=== PATIENT | male | born 1940 | race Caucasian/White ===

== ENCOUNTER → 2018-10-23 | Outpatient (CLI) | payer MEDICARE ==
--- NOTE | 2018-10-23 15:02 | CT ---
EXAMINATION TYPE: CT shoulder RT wo con DATE OF EXAM: 10/23/2018 COMPARISON: None HISTORY: 78-year-old male Right shoulder pain TECHNIQUE: Contiguous axial scanning of the right shoulder without IV contrast. Coronal and sagittal reconstructions performed. 3-D reconstructions generated on a dedicated independent workstation. CT DLP: 306.2 mGycm Automated exposure control for dose reduction was used. FINDINGS: There is end-stage degenerative change at the right glenohumeral joint. Multiple loose bodies within the superior subscapularis recess measuring up to 2 cm. Corresponding anterior glenohumeral joint eff usion. There is 19 degrees of glenoid retroversion and mild narrowing of glenoid bone stock posteriorly. Bul ky marginal spurring and subchondral sclerosis is present along with [id number] articulation. Multiple loose bodies are seen along the bicipital groove. Moderate to severe degenerative change at the acromial clavicular joint with capsular hypertrophy. Extensive bony irregularity of both lesser and greater tuberosities. There is some preserved volume i n the subacromial space with only mild volume loss and fatty streaks within the supraspinatus and sub scapularis muscle bellies. There is fatty atrophy of the teres minor noted. IMPRESSION: 1. END-STAGE GLENOHUMERAL JOINT OA WITH [id number] ARTICULATION, 19 DEGREES OF GLENOID RETROVERSION , AND MILD OVERALL LOSS OF GLENOID BONE STOCK POSTERIORLY. 2. MULTIPLE ANTERIOR LOOSE BODIES MEASURING UP TO 2 CM AND ADDITIONAL LOOSE BODIES ALONG THE BICIPITA L GROOVE. 3. MODERATE TO SEVERE AC JOINT OA. 4. MILD FATTY ATROPHY OF THE SUPRASPINATUS AND SUBSCAPULARIS MUSCLE BELLIES. THERE APPEARS TO BE MAIN TAINED TENDON BULK BELOW THE ACROMION. 5. COMPLETE FATTY ATROPHY OF THE TERES MINOR MAY BE SEEN WITH QUADRILATERAL SPACE SYNDROME.
== END | disposition home or self-care (01) ==
LOC: RADCTMAIN 12:11
PROVIDERS: ATTEND Orthopaedic Surgery Sports Medicine
DX: M19.111 Post-traumatic osteoarthritis, right shoulder (principal); M19.011 Primary osteoarthritis, right shoulder

== ENCOUNTER → 2018-11-05 | Outpatient (CLI) | payer MEDICARE ==
[2018-11-05 11:23] LABS: ALT 38 U/L (21-72); AST 32 U/L (17-59); African American GFR (CKD) >90 (>60 ml/min/1.73 sqM); Alkaline Phosphatase 56 U/L (38-126); Anion Gap 8 mmol/L; Blood Urea Nitrogen 15 mg/dL (9-20); Calcium 9.4 mg/dL (8.4-10.2); Carbon Dioxide 28 mmol/L (22-30); Chloride 105 mmol/L (98-107); Glucose 99 mg/dL (74-99); HCT 43.4 % (39.0-53.0); HGB 14.5 gm/dL (13.0-17.5); MCH 30.5 pg (25.0-35.0); MCHC 33.4 g/dL (31.0-37.0); MCV 91.4 fL (80.0-100.0); Mean Platelet Volume 6.6; Platelet Count 215 k/uL (150-450); Potassium 4.8 mmol/L (3.5-5.1); RBC 4.74 m/uL (4.30-5.90); RDW 13.7 % (11.5-15.5); Sodium 141 mmol/L (137-145); Total Bilirubin 0.5 mg/dL (0.2-1.3); Total Protein 6.8 g/dL (6.3-8.2); WBC 4.3 k/uL (3.8-10.6)
[2018-11-05 11:25] LABS: INR 0.9 (<1.2); Partial Thromboplastin Time 22.2 sec (22.0-30.0); Prothrombin Time 9.8 sec (9.0-12.0)
[2018-11-05 11:30] LABS: Appearance,Urine Clear (Clear); Bilirubin,Urine Negative (Negative); Blood,Urine Negative (Negative); Color,Urine Light Yellow; Glucose,Urine (UA) Negative (Negative); Ketones,Urine Negative (Negative); Leukocyte Esterase,Urine Negative (Negative); Nitrite,Urine Negative (Negative); Protein,Urine Negative (Negative); Specific Gravity,Urine 1.009 (1.001-1.035); Urobilinogen,Urine <2.0 mg/dL (<2.0)
== END | disposition home or self-care (01) ==
LOC: LABPAT 10:16
PROVIDERS: ATTEND Orthopaedic Surgery Sports Medicine
DX: Z01.818 Encounter for other preprocedural examination (principal); Z01.812 Encounter for preprocedural laboratory examination; Z79.01 Long term (current) use of anticoagulants
CPT/HCPCS: 36415; 80053; 81003; 85027; 85610; 85730; 87070; 93005

== ENCOUNTER 2018-11-14 09:30 | Inpatient (IN) | payer MEDICARE ==
[~2018-11-14 09:30] MED LIST: DEXAMETHASONE SOD PHOSPHATE 10 MG/ML 1 ML VIAL IV ONE; LIDOCAINE 1% 20 ML VIAL (10MG/ML) FOR IV START INTRADERMA PRN; MORPHINE SULFATE 2 MG/ML SYRINGE IV PRN; ONDANSETRON 4 MG/2 ML VIAL IVP ONE; ONDANSETRON 4 MG/2 ML VIAL IVP PRN
[2018-11-14] MEDS ORDERED: LACTATED RINGERS 1,000 ML IV ONE ×2 (14:16→16:19)
[2018-11-14] MEDS ORDERED: ACETAMINOPHEN TAB 500 MG TAB PO ONE (14:17)
[2018-11-14] MEDS ORDERED: TRANEXAMIC ACID 1,000 MG in SODIUM CHLORIDE 0.9% 100 ML IVPB ONE ×2 (14:21→14:30)
[2018-11-14] MEDS ORDERED: PROCHLORPERAZINE SUPPOSITORY 25 MG SUPP RECTAL PRN (14:26)
[2018-11-14] MEDS ORDERED: diphenhydrAMINE 25 MG CAP PO PRN ×2 (14:26→21:00)
[2018-11-14] MEDS ORDERED: hydrOXYzine PAMOATE 25 MG CAP PO PRN (14:26)
[2018-11-14] MEDS ORDERED: METOCLOPRAMIDE 5 MG/ML 2 ML VIAL IVP PRN (14:26)
[2018-11-14] MEDS ORDERED: SENNOSIDES-DOCUSATE SODIUM 1 EACH TAB PO PRN (14:26)
[2018-11-14] MEDS ORDERED: ONDANSETRON 4 MG/2 ML VIAL IVP PRN (14:26)
[2018-11-14] MEDS ORDERED: TEMAZEPAM 15 MG CAP PO PRN (14:26)
[2018-11-14] MEDS ORDERED: HYDROmorphone 0.5 MG/0.5 ML SYRINGE IVP PRN ×3 (14:26)
[2018-11-14] MEDS ORDERED: MIDAZOLAM PF (FBP) 2 MG/2 ML VIAL IVP ONE (14:30)
[2018-11-14] MEDS ORDERED: HYDROcodone/APAP 7.5-325MG 1 EACH TAB PO PRN ×2 (14:32)
[2018-11-14] MEDS ORDERED: PHENYLEPHRINE-0.9% NACL SYG 1 MG/10 ML SYRINGE ONE (14:56)
[2018-11-14] MEDS ORDERED: SUCCINYLCHOLINE CHLORIDE 100 MG/5 ML SYR IV ONE (14:56)
[2018-11-14] MEDS ORDERED: MIDAZOLAM 2 MG/2 ML VIAL ONE (14:56)
[2018-11-14] MEDS ORDERED: NEOSTIGMINE 1 MG/ML 10 ML VIAL ONE (14:56)
[2018-11-14] MEDS ORDERED: ROCURONIUM BROMIDE 10 MG/ML 10 ML VIAL IV ONE (14:56)
[2018-11-14] MEDS ORDERED: ePHEDrine SULFATE/0.9% NACL/PF 50 MG/5 ML SYRINGE IV ONE (14:56)
[2018-11-14] MEDS ORDERED: TRANEXAMIC ACID 1,000 MG/10 ML VIAL ONE (14:56)
[2018-11-14] MEDS ORDERED: PROPOFOL 10 MG/ML 20 ML VIAL IV ONE (14:56)
[2018-11-14] MEDS ORDERED: SODIUM CHLORIDE 0.9% 100 ML BAG ONE (14:56)
[2018-11-14] MEDS ORDERED: GLYCOPYRROLATE 0.2 MG/ML 2 ML VIAL ONE (14:56)
[2018-11-14] MEDS ORDERED: ROPIVACAINE 5 MG/ML 30 ML VIAL ONE (14:56)
[2018-11-14] MEDS ORDERED: LIDOCAINE 1% INJ 10MG/ML (20 ML MDV) ONE (14:56)
[2018-11-14] MEDS ORDERED: fentaNYL (PF) 50 MCG/ML 2 ML AMP ONE (14:56)
--- NOTE | 2018-11-14 15:03 | P.ANPRN ---
Procedure Note - Anesthesia - Nerve Block Performed Right Interscalene Single Time Out Performed: Yes Date of Procedure: 11/14/18 Procedure Start Time: 14:30 Procedure Stop Time: 14:35 Location of Patient Procedure: PreOp Indication: Acute Post-Operative Pain, Requested by Surgeon Specifically requested for management of pain by DrAbe: Omar Lozano Sedation Type: Sedate with meaningful contact maintained Preparation: Sterile Prep Position: Supine Catheter: None Needle Types: Facet Needle Gauge: 20 Ultrasound used to visualize needle placement: Yes Ultrasound used to observe medication spread: Yes Injectate: 0.5% Ropivacaine (see comment for volume) (30 mls) Blood Aspirated: No Pain Paresthesia on Injection Noted: No Resistance on Injection: Normal Image Stored and Saved: Yes Events: Uneventful and Well Tolerated
[2018-11-14] MEDS ORDERED: ceFAZolin 3,000 MG in SODIUM CHLORIDE 0.9% IRRIGATIO 3,000 ML IRRIGATION ONE (15:37)
[2018-11-14] MEDS ORDERED: VANCOMYCIN 1,000 MG VIAL MISCELLANE ONE (16:33)
--- NOTE | 2018-11-14 18:00 | XR ---
EXAMINATION TYPE: XR shoulder limited RT DATE OF EXAM: 11/14/2018 COMPARISON: NONE HISTORY: Shoulder replacement. TECHNIQUE: Single portable view right shoulder is obtained. FINDINGS: Metallic hardware from shoulder surgery as well satisfactory in position. Surrounding lucen cy consistent with recent surgery and percutaneous drainage catheter are noted. IMPRESSION: As above.
[2018-11-14 19:17] VITALS: BMI 26.4
[2018-11-14] MEDS ORDERED: CALCIUM CARBONATE 500 MG CHEWABLE PO PRN (19:26)
[2018-11-14] MEDS ORDERED: IBUPROFEN 200 MG TAB PO PRN (19:26)
[2018-11-14] MEDS ORDERED: LORazepam 2 MG/ML INJ IV PRN ×4 (19:29)
[2018-11-14] MEDS ORDERED: THIAMINE 100 MG/ML 2 ML VIAL IM STA (19:29)
[2018-11-14 19:39] LABS: Basophils % (A) 0 %; Eosinophils % (A) 0 %; HCT 50.1 % (39.0-53.0); HGB 14.6 gm/dL (13.0-17.5); Hypochromasia Marked; Lymphocytes # (A) 0.7 k/uL (1.0-4.8); Lymphocytes % (A) 7 %; MCH 30.5 pg (25.0-35.0); MCHC 29.1 g/dL (31.0-37.0); Macrocytosis Slight; Mean Platelet Volume 7.4; Monocytes # (A) 0.2 k/uL (0-1.0); Monocytes % (A) 2 %; Neutrophils # (A) 8.8 k/uL (1.3-7.7); Neutrophils % (A) 90 %; Platelet Count 188 k/uL (150-450); RBC 4.78 m/uL (4.30-5.90); RDW 13.2 % (11.5-15.5); WBC 9.8 k/uL (3.8-10.6)
[2018-11-14 19:40] LABS: MCV 104.7 fL (80.0-100.0)
[2018-11-14] MEDS: LACTATED RINGERS 1,000 ML IV SCH (20:05)
[2018-11-14] MEDS: THIAMINE 100 MG TAB PO SCH (20:34)
[2018-11-14] MEDS ORDERED: amLODIPine 10 MG TAB PO SCH (21:00)
[2018-11-14] MEDS ORDERED: PROPRANOLOL LA 60 MG CAP.SA.24H PO SCH (21:00)
[2018-11-14] MEDS ORDERED: ACETAMINOPHEN TAB 500 MG TAB PO PRN (21:00)
[2018-11-14] MEDS ORDERED: PRAVASTATIN SODIUM 20 MG TAB PO SCH (21:00)
--- NOTE | 2018-11-15 00:07 | OP ---
OPERATIVE REPORT DATE OF PROCEDURE: 11/14/2018. SURGEON: Omar Lozano MD. [facility] CASHIER: Melquiades HYLTON. PREOPERATIVE DIAGNOSIS: Right shoulder osteoarthrosis. POSTOPERATIVE DIAGNOSIS: Right shoulder osteoarthrosis. OPERATION PERFORMED: Right total shoulder arthroplasty. ANESTHESIA: General endotracheal. ESTIMATED BLOOD LOSS: Was 150 mL. DRAINS: One deep drain. COMPLICATIONS: None apparent. DISPOSITION: Postanesthesia care unit. INDICATIONS: Mr. Koehler is a very pleasant 78-year-old male with longstanding right shoulder pain. Workup including x-rays and a CT scan revealed advanced osteoarthrosis of the right shoulder. At this point, it is felt that he has failed conservative management. He would like to proceed with operative intervention. The risks of procedure were discussed with him in detail. These risks include, but are not limited to risk of infection, nerve damage, bleeding, pain, instability in the shoulder, loosening of the implants and deep infection. There is also risk of deep vein thrombosis which could lead to fatal pulmonary embolism. The patient understood the risks. All of his questions were answered to his satisfaction. Appropriate informed consent was obtained. DESCRIPTION OF PROCEDURE: Patient identified in preop holding area. Surgical site was marked by both the patient and myself. He was given 2 g of Ancef IV for prophylactic purposes. He was then transferred to the operative suite, where he was placed supine on the operative table. General anesthetic was then administered and dosed per the anesthesia without apparent complication. Examination under anesthesia was then performed of the right shoulder. He had elevation to 130 degrees. External rotation at the side was to 30 degrees. The patient's right upper extremity was then prepped and draped in usual sterile fashion. Standard surgical pause was then undertaken to ensure that we were operating on the correct site and that appropriate preoperative antibiotics were given. All staff in room in agreement and we proceeded. The acromion AC joint clavicle and coracoid were marked with a surgical pen. A planned incision starting at the level of the clavicle extending distally over the deltopectoral interval approximately 1 cm lateral to the coracoid was marked with a surgical pen. The incision was then made with a 10 blade scalpel. Dissection carried down sharply to the deltoid fascia. The deltopectoral interval was identified at the level of the clavicle. A small band retractor was then placed onto the proximal deltoid. I then released the deltoid fascia on the lateral aspect of the cephalic vein. The vein was then left in its bed medially. The cephalic vein was protected throughout the entire case. I then identified the clavipectoral fascia. It was incised proximally to the level of the coracoacromial ligament. The coracoacromial ligament was left intact. I then used my finger to spread the interval between the conjoined tendon and the subscapularis. I felt for the axillary nerve which was readily palpable. I then cleared the subacromial subdeltoid spaces of bursal and scar tissue. I then utilized a Brown retractor to hold the deltoid and expose the humeral head. I then proceeded with release of the subscapularis in the anterior inferior shoulder capsule. The rotator cuff was inspected. Found to be intact. The rotator interval was identified. The course of the biceps tendon was also identified. I then released the rotator interval. It was released at the base of the coracoid and then out laterally. The subscapularis and the capsule were released intratendinously. The subscapularis and capsule release extended distally in a lazy-S fashion approximately 1 cm medial to the biceps tendon. I then continued to resect the capsule along the inferior neck in a vertical fashion to approximately the 6 o'clock position. Great care was taken to ensure that the capsule was always visualized as it was released to avoid injuring the axillary nerve. At this point, I incised the roof of the bicipital groove and sheath. I then did a soft tissue tenodesis to the surrounding tissue including the upper border of the pectoralis with multiple 0-Vicryl interrupted suture. The long head of the biceps tendon was then released. I then brought in the Jackson stand with the arm externally rotated and abducted. I continued to release the capsule inferomedially to the 4 o'clock position. The inferior osteophytes were now removed as well. This was done with a rongeur. I then proceeded with preparation of the humerus. I continued to remove all the goat's javier osteophytes. These were quite extensive. Two very large calcified loose bodies were also removed from the anterior recess of the shoulder. I then removed the subchondral plate from the superior aspect of the humeral head utilizing a large rongeur. I then utilized a starting reamer to gain access to the humeral canal. This was approximately 1 cm medial to the rotator cuff insertion and 1 cm posterior to the bicipital groove. I then prepared the humeral canal with hand reaming. I started with a 6 mm reamer and progressed incrementally in 1 mm increments until firm resistance was encountered. This was at 14 mm. The reamer handle was then left in place. I then utilized a humeral resection guide set at 30 degrees of retrotorsion. The cutting block was set 1-2 mm above the insertion of the rotator cuff. I then proceed to osteotomize the humeral head with the oscillating saw. I removed the resection guide and then completed the osteotomy. I then proceeded with trial stem placement. A sized trial of 14 was then broached in the canal starting with a 6 mm broach and then incrementally increasing up to a 14 mm broach. Again this was done in 30 degrees of retrotorsion. The 14 mm broach was then left in place. I then proceeded with trial reduction. I started with a 46 x 21 x 50 head. This fit very nicely. It fit opposite the glenoid. The rotator cuff was not tented. Internal rotation was to 90 degrees. Elevation was 250 degrees and translation was 1/2 of the head in neutral rotation and 1/4 the head inferiorly in 15-20 degrees of abduction. I then removed the trial head. The stem was left in place. I proceeded with exposure of the glenoid. At this point, I did remove the biceps tendon. This was tenotomized at the level of superior labrum. A bone hook was then used to pull the humerus out laterally. I inspected the joint for any loose bodies. There were some small loose bodies still that were removed. The condition of the cuff again was inspected. It was in excellent condition. I had made a decision to proceed with an anatomic total shoulder replacement. A Batman retractor was then placed on the posterior glenoid rim. The arm was then placed in approximately 70-80 degrees of abduction and in slight flexion on a Jackson stand. I then proceeded to remove the hypertrophic labrum to definitively identify the actual glenoid. I then selected the size of the glenoid. A large size glenoid seemed to fit very nicely. I then utilized a starting drill to make the centering hole. I then proceeded to ream the glenoid fossa. This was done with a large size reamer. Reaming was taken down to paprika sign. I had a nice bleeding surface. I did as minimal reaming as possible though to maintain as much of the subchondral plate as possible. There was a tiny bit of posterior inferior loss. I preferentially took off slightly more anterior glenoid with reaming as well. I then proceeded to place the glenoid drill holes. The peripheral drill holes were then placed in the center hole was also drilled as well. I then placed a trial size large glenoid. Fit very nicely on the glenoid. I then proceed with cementing. I [place] the wound and the bone. The drill holes were then packed with Ray-Chandra sponges. The cement was mixed on the back table by the product safety technical assistant. The drill holes were then packed with cement utilizing a 20 mL syringe. These were packed very tightly. A small amount of cement was then placed on the posterior aspect of the real glenoid component as well. I then impacted the real glenoid component into place. It was a Biomet large-sized pegged glenoid component with a Regenerex central PEG. Excess cement was then removed utilizing a [place] elevator. Pressure was held on the glenoid component until the cement had hardened. I then removed the band retractor. I then proceeded with the humeral component trial reduction with the glenoid. The 46 x 21 x 50 head was then placed back onto the stem. Again this was taken through trial. The head set opposite the glenoid. The rotator cuff was not tented. Elevation was 150 degrees, internal rotation 90 degrees and translation was 1/2 of the head in neutral rotation, 1/4 of the head in 15-20 degrees of abduction. I then had the logistics service representative open a 46 x 21 x 50 real head and a size 12 Biomet mini stem. The stem was then impacted into the count canal and 30 degrees of retrotorsion. The real head was then impacted onto the stem. The shoulder was reduced. I then proceeded with closure. The shoulder was then again thoroughly irrigated with sterile saline solution with antibiotic added via pulse lavage. The rotator interval was closed with #2 coated Vicryl. The subscapularis was then closed with interrupted #2 FiberWire suture. A deep drain was then placed and brought out superiorly away from the incision. Approximately 500 mg of vancomycin powder was then placed deep in the wound. The deltopectoral interval was then closed loosely with 0 Vicryl interrupted suture. The subcutaneous tissue and the ____ was again thoroughly irrigated with sterile saline solution with antibiotic added via pulse lavage. The remaining 500 mg of vancomycin powder was then placed subcutaneously. The subcutaneous tissue was then closed with 2-0 Vicryl interrupted suture. The skin was closed with a running 3-0 Quill suture. Sterile compressive dressings were applied. The patient's right upper extremity was then placed into a shoulder immobilizer. All sponge and needle counts were deemed correct prior to closure. The patient tolerated procedure without apparent complication. He was transferred recovery room in stable condition. Of note, prior to closure, I did feel for the axillary nerve which was intact. The tug test was also normal. MMODL / IJN: [id number] /
[2018-11-15] MEDS: LACTATED RINGERS 1,000 ML IV SCH (05:09)
[2018-11-15 07:24] VITALS: RESP 16
[2018-11-15] MEDS: THIAMINE 100 MG TAB PO SCH (08:25)
[2018-11-15] MEDS ORDERED: VIT A,C & E-LUTEIN-MINERALS 1 EACH TAB PO SCH (09:00)
[2018-11-15] MEDS ORDERED: MULTIVITAMINS, THERA 1 EACH TAB PO SCH (09:00)
--- NOTE | 2018-11-15 09:23 | P.DS ---
Providers Date of admission: 11/14/18 13:30 Expected date of discharge: 11/15/18 Attending physician: Omar Lozano Consults: 11/14/18 14:26 Consult Physician Routine Consulting Provider: Peter Teresa Consult Reason/Comments: post op medical management Do you want consulting provider notified?: Yes Primary care physician: Elaine Christopher - Discharge Diagnosis(es) (1) Osteoarthritis of right shoulder Patient was admitted to the OR on 11/14/2018 to undergo a right total shoulder arthroplasty. He had failed conservative measures an outpatient and desired to proceed with elective surgery after given informed consent. He underwent the above procedure which he tolerated well without complication. Postoperative hospital course has remained without complication. On day of discharge he is afebrile, vital signs stable, labs within acceptable ranges, tolerating by mouth meds and diet, voiding without difficulty, positive flatus, denies abdominal pain or calf pain, pain is controlled on oral pain medication and has no new complaints. Wound is benign, neurovascular status is intact, calf is soft and nontender, abdomen soft and nontender. Review of systems is negative for numbness, tingling, fever, chills, chest pain, shortness of breath, nausea, vomiting, dizziness, headaches, slurred speech or other. Current Visit: Yes Status: Acute Priority: Medium Procedures: Right TSA Patient Condition at Discharge: Good Plan - Discharge Summary Discharge Rx Participant: Yes New Discharge Prescriptions: New Docusate [Colace] 100 mg PO BID #60 capsule Doxycycline Hyclate 100 mg PO BID #10 tab HYDROcodone/APAP 7.5-325MG [[place] 7.5-325] 1 - 2 tab PO Q6HR PRN #56 tab PRN Reason: Pain No Action Sildenafil [Revatio] 50 mg PO DIRECTED Vit C/E/Zn/Coppr/Lutein/Zeaxan [Preservision Areds 2 Softgel] 1 cap PO DAILY Ibuprofen 200 - 400 mg PO Q6HR PRN PRN Reason: Pain amLODIPine BESYLATE 10 mg PO HS Propranolol HCl [Inderal Xl] 120 mg PO HS Acetaminophen/Diphenhydramine [Tylenol PM 500-25mg] 1 tab PO HS PRN PRN Reason: PAIN/INSOMNIA Pravastatin Sodium [Pravachol] 10 mg PO HS Calcium Carb/Magnesium Hydrox [Rolaids Chewable Tablet] 1 - 2 tab PO DAILY PRN PRN Reason: Indigestion Discharge Medication List Acetaminophen/Diphenhydramine [Tylenol PM 500-25mg] 1 tab PO HS PRN 11/09/18 [History] Calcium Carb/Magnesium Hydrox [Rolaids Chewable Tablet] 1 - 2 tab PO DAILY PRN 11/09/18 [History] Ibuprofen 200 - 400 mg PO Q6HR PRN 11/09/18 [History] Pravastatin Sodium [Pravachol] 10 mg PO HS 11/09/18 [History] Propranolol HCl [Inderal Xl] 120 mg PO HS 11/09/18 [History] Sildenafil [Revatio] 50 mg PO DIRECTED 11/09/18 [History] Vit C/E/Zn/Coppr/Lutein/Zeaxan [Preservision Areds 2 Softgel] 1 cap PO DAILY 11/09/18 [History] amLODIPine BESYLATE 10 mg PO HS 11/09/18 [History] Docusate [Colace] 100 mg PO BID #60 capsule 11/15/18 [Rx] Doxycycline Hyclate 100 mg PO BID #10 tab 11/15/18 [Rx] HYDROcodone/APAP 7.5-325MG [[place] 7.5-325] 1 - 2 tab PO Q6HR PRN #56 tab 11/15/18 [Rx] Follow up Appointment(s)/Referral(s): Omar Lozano MD [STAFF PHYSICIAN] - 10 Days Activity/Diet/Wound Care/Special Instructions: Keep wound clean and dry Take meds as directed Follow-up with Dr. Lozano in office Non weightbearing RUE May shower in 3 days if no bleeding Discharge Disposition: HOME SELF-CARE
[2018-11-15 09:54] LABS: ALT 22 U/L (21-72); AST 22 U/L (17-59); African American GFR (CKD) >90 (>60 ml/min/1.73 sqM); Albumin 3.7 g/dL (3.5-5.0); Alkaline Phosphatase 51 U/L (38-126); Anion Gap 10 mmol/L; Blood Urea Nitrogen 14 mg/dL (9-20); Calcium 9.1 mg/dL (8.4-10.2); Carbon Dioxide 24 mmol/L (22-30); Chloride 102 mmol/L (98-107); Glucose 134 mg/dL (74-99); Potassium 4.5 mmol/L (3.5-5.1); Sodium 136 mmol/L (137-145); Total Protein 6.2 g/dL (6.3-8.2)
--- NOTE | 2018-11-15 11:00 | P.CONS ---
History of Present Illness - Reason for Consult Consult date: 11/15/18 - History of Present Illness This is a 78-year-old male patient of Dr. Christopher who presented yesterday for a right total shoulder arthroplasty with Dr. Lozano. Operative note states that patient has a history of right shoulder pain for the past [address] revealed advanced osteoarthritis right shoulder. Patient has a past medical history of hypertension hyperlipidemia, and prostate CA. Pt denies history of a trial fibrillation or blood clots. Patient is alert and oriented 3. Complaining of mild shoulder pain, controlled by pain medications. Patient denies any chest pain, shortness of breath, nausea vomiting. Patient denies any numbness or tingling in the right upper extremity. Right arm supported with sling, surgical dressing clean dry and intact. Tolerating regular diet. The mojica catheter will be removed today. Review of Systems Please refer to HPI otherwise unremarkable. Past Medical History Past Medical History: Cancer, Hyperlipidemia, Hypertension Additional Past Medical History / Comment(s): VERTIGO . STATES NO GERD, BUT INDIGESTON. History of Any Multi-Drug Resistant Organisms: None Reported Past Surgical History: Prostate Surgery, Tonsillectomy Additional Past Surgical History / Comment(s): PROSTATECTOMY. BILATERAL CATARACTS WITH LENS IMPLANT. SURGERY FOR LEFT RETINAL DETACHMENT. Past Anesthesia/Blood Transfusion Reactions: Motion Sickness Additional Past Anesthesia/Blood Transfusion Reaction / Comm: VERTIGO Past Psychological History: No Psychological Hx Reported Smoking Status: Never smoker Past Alcohol Use History: Heavy Additional Past Alcohol Use History / Comment(s): 5 BEERS PER DAY Past Drug Use History: None Reported - Past Family History Mother Family Medical History: Cancer Additional Family Medical History / Comment(s): KIDNEY CANCER Medications and Allergies Home Medications Medication Instructions Recorded Confirmed Type Acetaminophen/Diphenhydramine 1 tab PO HS PRN 11/09/18 11/09/18 History [Tylenol PM 500-25mg] Calcium Carb/Magnesium Hydrox 1 - 2 tab PO DAILY PRN 11/09/18 11/09/18 History [Rolaids Chewable Tablet] Ibuprofen 200 - 400 mg PO Q6HR PRN 11/09/18 11/09/18 History Pravastatin Sodium [Pravachol] 10 mg PO HS 11/09/18 11/09/18 History Propranolol HCl [Inderal Xl] 120 mg PO HS 11/09/18 11/09/18 History Sildenafil [Revatio] 50 mg PO DIRECTED 11/09/18 11/09/18 History Vit C/E/Zn/Coppr/Lutein/Zeaxan 1 cap PO DAILY 11/09/18 11/09/18 History [Preservision Areds 2 Softgel] amLODIPine BESYLATE 10 mg PO HS 11/09/18 11/09/18 History Docusate [Colace] 100 mg PO BID #60 capsule 11/15/18 Rx Doxycycline Hyclate 100 mg PO BID #10 tab 11/15/18 Rx HYDROcodone/APAP 7.5-325MG [[place] 1 - 2 tab PO Q6HR PRN #56 tab 11/15/18 Rx 7.5-325] Allergies Allergy/AdvReac Type Severity Reaction Status Date / Time No Known Allergies Allergy Verified 11/09/18 09:03 Physical Exam Vitals: Vital Signs Temp Pulse Resp BP Pulse Ox 11/15/18 07:00 97.9 F 64 16 126/77 93 L 11/15/18 02:34 98.0 F 65 17 111/68 96 11/14/18 20:19 92 18 108/75 97 11/14/18 20:03 82 18 137/80 94 L 11/14/18 19:48 71 18 137/81 94 L 11/14/18 19:33 64 18 135/79 95 11/14/18 19:18 74 18 147/79 93 L 11/14/18 19:03 93 18 136/77 95 11/14/18 18:48 71 18 144/59 96 11/14/18 18:33 97.6 F 62 18 143/77 95 11/14/18 18:15 73 16 135/61 93 L 11/14/18 18:00 74 16 136/66 93 L 11/14/18 17:43 78 16 151/74 93 L 11/14/18 17:27 96.8 F L 90 14 146/94 94 L 11/14/18 14:37 64 18 137/84 97 11/14/18 13:51 97.3 F L 59 L 18 170/79 94 L Intake and Output 11/14/18 11/15/18 11/15/18 22:59 06:59 14:59 Intake Total 1831 Output Total 250 1010 525 Balance 1581 -1010 -525 Intake: IV 1351 Oral 480 Output: Drainage 210 Right Shoulder 210 Urine 100 800 525 Uretheral (Mojica) 525 Estimated Blood Loss 150 Other: Voiding Method Indwelling Catheter Indwelling Catheter Head normocephalic Neck supple Lungs clear to auscultation bilaterally no wheezing or crackles Heart regular rate and rhythm S1-S2, no rub or gallop Abdomen is soft nontender nondistended positive bowel sounds no hepatosplenomegaly Extremities no edema Right shoulder dressing clean dry and intact, arm supported with sling, public health engineer strength 5/5, right radial pulse +2. Neuro alert and orientated to 3 Results CBC & Chem 7: 11/14/18 19:13 11/15/18 09:06 Labs: Abnormal Lab Results - Last 24 Hours (Table) 11/14/18 11/15/18 Range/Units 19: 09:06 MCV 104.7 H D (80.0-100.0) fL MCHC 29.1 L (31.0-37.0) g/dL Neutrophils # 8.8 H (1.3-7.7) k/uL Lymphocytes # 0.7 L (1.0-4.8) k/uL Sodium 136 L (137-145) mmol/L Glucose 134 H (74-99) mg/dL Total Protein 6.2 L (6.3-8.2) g/dL Assessment and Plan Assessment: 1. Right total shoulder arthroplasty. Patient has had a greater than two-year history of right shoulder pain, recent his CT showed advanced osteoarthritis right shoulder. Postop day 1, hemoglobin stable at 14.6. Pain control per orthopedic services. Per orthopedic surgeon patient to be discharged on doxycycline. 2. Hypertension essential, taking home dose of Norvasc and propranolol. 3. History of hyperlipidemia, currently on statin. 4. History of prostate CA 5. History of EtOH, 5 beers per day. No signs of withdrawal at this time. 6. History of vertigo Patient to be discharged home per orthopedic services Thank you for this consultation we'll continue to monitor patient closely throughout stay
[2018-11-15 14:06] VITALS: BP 144/77; PULSE 57; TEMP 98.1
== END 2018-11-15 14:17 | disposition home or self-care (01) | DRG 483 ==
LOC: EDSTATUS 12:30 → 2ORMAIN 13:30 → 4SSUR 17:27
PROVIDERS: ADMIT Orthopaedic Surgery Sports Medicine; ATTEND Orthopaedic Surgery Sports Medicine
PROC: 0RRJ0JZ Replacement of Right Shoulder Joint with Synthetic Substitute, Open Approach (ICD-10-PCS; principal; 2018-11-14 15:00)
DX: M19.011 Primary osteoarthritis, right shoulder (principal); E78.5 Hyperlipidemia, unspecified; I10 Essential (primary) hypertension; Z96.1 Presence of intraocular lens; Z85.46 Personal history of malignant neoplasm of prostate; Z98.890 Other specified postprocedural states; Z98.42 Cataract extraction status, left eye; Z98.41 Cataract extraction status, right eye; Z80.51 Family history of malignant neoplasm of kidney; Z79.899 Other long term (current) drug therapy; Z83.3 Family history of diabetes mellitus; Z82.49 Family history of ischemic heart disease and other diseases of the circulatory system; Z87.891 Personal history of nicotine dependence; Z90.79 Acquired absence of other genital organ(s)
CPT/HCPCS: 64415; 80053; 85025; 88300